=== PATIENT | male | born 1945 | race Caucasian/White ===

== ENCOUNTER → 2020-04-17 | Outpatient (CLI) | payer OTHER ==
--- NOTE | 2020-04-17 16:15 | RADIOLOGY REPORT (SQ) ---
EXAM DESCRIPTION: CAROTID DOPPLER IMAGES COMPLETED DATE/TIME: 04/17/2020 4:06 pm REASON FOR STUDY: AMAUROSIS FUGAX G45.3 AMAUROSIS FUGAX COMPARISON: None. TECHNIQUE: Grayscale ultrasound, Doppler velocity and spectra, and color Doppler images acquired of the extra-cranial carotid and vertebral arteries. Images stored on PACS. LIMITATIONS: None. FINDINGS: RIGHT CAROTID CCA Velocities: Within normal limits. ICA Velocities Peak systolic 91 cm/s. End diastolic 37 cm/s. Proximal ICA/CCA peak systolic ratio 1.06. Small amount plaque in the bulb. LEFT CAROTID CCA Velocities: Within normal limits. ICA Velocities Peak systolic 83 cm/s. End diastolic 32 cm/s. Proximal ICA/CCA peak systolic ratio 0.88. Small amount of plaque in the bulb. VERTEBRAL ARTERIES: Antegrade flow. Normal waveforms. SUBCLAVIAN ARTERIES: No finding. OTHER: No other significant finding. IMPRESSION: NO HEMODYNAMICALLY SIGNIFICANT STENOSIS. COMMENT: Quality ID #195: Velocity criteria are extrapolated from the diameter data as defined by t he Society of Radiologists in Ultrasound Consensus Conference. Radiology 2003: 229; 340-346. TECHNICAL DOCUMENTATION: JOB ID: [id number] [employer]- All Rights Reserved Reading location - IP/workstation name: [email or web address]
== END ==
LOC: SP 13:36
PROVIDERS: ATTEND Ophthalmology
DX: G45.3 Amaurosis fugax (principal)
CPT/HCPCS: 93880

== ENCOUNTER → 2020-08-11 | Outpatient (CLI) | payer OTHER ==
--- NOTE | 2020-08-11 13:33 | RADIOLOGY REPORT (SQ) ---
EXAM DESCRIPTION: BARIUM ENEMA W/AIR IMAGES COMPLETED DATE/TIME: 08/11/2020 11:21 am REASON FOR STUDY: ABD PAIN, DIARRHEA COMPARISON: None. FLUOROSCOPY TIME: 6.2 minutes 38 images saved to PACS. TECHNIQUE: Following retrograde filling of the colon with barium and air, fluoroscopic spot and over head imaging of the colon was obtained and saved to PACS. LIMITATIONS: None. FINDINGS: TOOL AND FIXTURE REPAIRER KUB: Normal abdominal film with adequate bowel prep. CECUM: Normal mucosa without intraluminal filling defects, intrinsic or extrinsic masses, or lesions. ASCENDING COLON: Normal mucosa without intraluminal filling defects, intrinsic or extrinsic masses, o r lesions. TRANSVERSE COLON: Normal mucosa without intraluminal filling defects, intrinsic or extrinsic masses, or lesions. DESCENDING COLON: A few scattered diverticuli noted. Normal mucosa without intraluminal filling defe cts, intrinsic or extrinsic masses, or lesions. SIGMOID COLON: Segment of narrowing in the sigmoid colon related to extensive diverticular disease. No fixed strictures are identified. RECTUM: Normal mucosa without intraluminal filling defects, intrinsic or extrinsic masses, or lesions . POST EVAC: Near complete evacuation of barium with no additional findings. OTHER: No other significant finding. IMPRESSION: SEGMENT OF NARROWING IN THE SIGMOID COLON RELATED TO EXTENSIVE DIVERTICULAR DISEASE. NO FIXED STRICTURES IDENTIFIED. COMMENT: Recommend correlation with CT abdomen pelvis to rule out extrinsic component. Quality ID 145: Final reports for procedures using fluoroscopy that document radiation exposure ema ubaldo, or exposure time and number of fluorographic images (if radiation exposure indices are not avail able) TECHNICAL DOCUMENTATION: JOB ID: [id number] 2010 [place] [id number]- All Rights Reserved Reading location - IP/workstation name: [email or web address] [id number]
== END ==
LOC: RAD 09:23
PROVIDERS: ATTEND Nurse Practitioner Family
DX: K57.30 Diverticulosis of large intestine without perforation or abscess without bleeding (principal); R10.9 Unspecified abdominal pain; R19.7 Diarrhea, unspecified
CPT/HCPCS: 74280

== ENCOUNTER 2020-09-23 07:59 | Day surgery (SDC) | payer OTHER ==
[~2020-09-23 07:59] MED LIST: PROPOFOL INJ 200 MG/20 ML VIAL IV ONE
[2020-09-23] MEDS ORDERED: PROPOFOL INJ 200 MG/20 ML VIAL IV ONE (10:20)
[2020-09-23 10:42] VITALS: BP 121/65
--- NOTE | 2020-09-23 11:38 | Operative Report ---
Operative Report DATE OF SURGERY: 09/23/20 Operative Report: The risk, benefits and alternatives of the procedure including the risk of bleeding, perforation requiring surgery have been explained to the patient in detail and informed consent has been obtained. Patient is placed in left, lateral decubital position. Timeout was called. Propofol medication is administered. Rectal examination is done which did not reveal any masses, tears or fissures. An Olympus videoscope was introduced into the patient's rectum. Scope was then carefully advanced all the way to the cecum. Cecum was identified by the usual anatomical landmarks including the ileocecal valve as well as the appendiceal office. Photodocumentation is obtained. The scope was then sequentially pulled back via the various segments of the colon including the ascending colon, hepatic flexure, transverse colon, splenic flexure, descending colon finally in to the rectosigmoid portions of the colon. Retroflexion maneuver is performed. PREOPERATIVE DIAGNOSIS: History of diverticulosis. Incomplete colonoscopy in the past, previous provider noted possible diverticular stricture POSTOPERATIVE DIAGNOSIS: Colonoscopy completed to the cecum. Diverticulosis noted in the sigmoid but no stricture is noted. Random biopsies taken at the right-hand side of the colon. Internal hemorrhoids OPERATION: Colonoscopy with biopsy ANESTHESIA: LMAC TISSUE REMOVED OR ALTERED: As noted above. COMPLICATIONS: None. ESTIMATED BLOOD LOSS: None. INTRAOPERATIVE FINDINGS: As noted above. PROCEDURE: Patient tolerated the procedure well. No immediate postprocedure complications are noted. Patient is discharged in good condition. Discharge date 09/23/2020. Discharge diet: Regular. Discharge activity: Regular. 2 to 3-week follow-up to discuss findings. Patient is instructed call the office or proceed to the emergency room should th ere be any further problems or questions. Wait on the pathology. 5-year surveillance colonoscopy.
== END 2020-09-23 10:56 | disposition home or self-care (01) ==
LOC: OROUT 07:59
PROVIDERS: ATTEND Internal Medicine Gastroenterology
DX: K57.30 Diverticulosis of large intestine without perforation or abscess without bleeding (principal); K52.9 Noninfective gastroenteritis and colitis, unspecified; Z86.010 Personal history of colon polyps; Z80.0 Family history of malignant neoplasm of digestive organs; F17.210 Nicotine dependence, cigarettes, uncomplicated
CPT/HCPCS: 45380; 88305 ×2; J2704; 812